=== PATIENT | male | born 1985 | race Caucasian/White ===

== ENCOUNTER 2022-12-09 07:30 | Emergency (ER) | payer BC ==
[2022-12-09] MEDS ORDERED: Sodium Chloride 0.9% 10 ML Syringe FLUSH PRN (07:43)
[2022-12-09] MEDS: Sodium Chloride 0.9% 1,000 ML IV ONE (07:50)
[2022-12-09 07:54] LABS: BASOPHILS ABSOLUTE AUTO 0.05 10^3/uL (0.00-0.10); BASOPHILS PERCENT AUTO 0.5 % (0.0-1.0); EOSINOPHILS ABSOLUTE AUTO 0.25 10^3/uL (0.10-0.30); EOSINOPHILS PERCENT AUTO 2.7 % (1.0-3.0); HEMATOCRIT 48.5 % (40.0-52.0); HEMOGLOBIN 15.8 g/dL (13.0-17.0); IMMATURE GRAN ABSOLUTE AUTO 0.01 10^3/uL (0.00-0.50); IMMATURE GRAN PERCENT AUTO 0.1 % (0.0-5.0); LYMPHOCYTES PERCENT AUTO 26.5 % (20.0-40.0); MEAN CORPUSCULAR HGB CONC 32.6 g/dL (32.0-36.0); MEAN CORPUSCULAR VOLUME 85.8 fL (82.0-92.0); MONOCYTES ABSOLUTE AUTO 1.06 10^3/uL (0.10-0.80); MONOCYTES PERCENT AUTO 11.2 % (2.0-8.0); NEUTROPHILS ABSOLUTE AUTO 5.56 10^3/uL (2.50-7.00); PLATELET COUNT,PLT 247 10^3/uL (150-400); RED BLOOD CELL COUNT 5.65 10^6/uL (4.50-6.00); RED CELL DISTRIBUTION WIDTH 12.2 % (11.5-14.5); WHITE BLOOD CELL COUNT,WBC 9.43 10^3/uL (5.00-10.00)
[2022-12-09 08:17] LABS: ALBUMIN 3.66 g/dL (3.40-5.00); ANION GAP 11.7 mmol/L (5-15); BILIRUBIN TOTAL 0.5 mg/dL (0.2-1.0); CALCIUM 8.7 mg/dL (8.7-10.3); CARBON DIOXIDE,CO2 30.3 mmol/L (21.0-32.0); CREATININE 1.1 mg/dL (0.51-1.17); EST CRCL DRUG DOSING (CG) 96.03 mL/min; PROTEIN TOTAL,TP 7.4 g/dL (6.4-8.2)
[2022-12-09] MEDS: Iopamidol 755 Mg/ML 100 ML Bottle IV ONE (08:43)
[2022-12-09] MEDS: Sodium Chloride 0.9% 50 ML IV SCH (08:43)
[2022-12-09] MEDS: Ketorolac 30 MG/ML SDV IVPUSH ONE (09:15)
[2022-12-09 09:18] LABS: APPEARANCE,URINE CLEAR (CLEAR); BILIRUBIN,URINE NEGATIVE (NEGATIVE); COLOR,URINE YELLOW (YELLOW); GLUCOSE,URINE NEGATIVE (NEGATIVE); KETONES,URINE NEGATIVE (NEGATIVE); LEUKOCYTE ESTERASE,URINE NEGATIVE (NEGATIVE); NITRITE,URINE NEGATIVE (NEGATIVE); OCCULT BLOOD,URINE TRACE-INTACT (NEGATIVE); PROTEIN,URINE NEGATIVE (NEGATIVE); UROBILINOGEN,URINE 0.2 E.U./dL (0.2-1.0)
[2022-12-09 09:31] LABS: BACTERIA,URINE RARE /HPF (NONE TO FEW); EPITHELIAL CELLS,URINE RARE /LPF; WBC,URINE 0-5 /HPF (0-5)
== END 2022-12-09 09:34 | disposition home or self-care (01) ==
LOC: KA.ED 07:30
DX: K63.89 Other specified diseases of intestine (principal); I10 Essential (primary) hypertension; Z91.018 Allergy to other foods
CPT/HCPCS: 74177; 80053; 81001; 83690; 85025; 96361; 96374; 99284; 99284-25; J1885; J3490; J7030; Q9967